=== PATIENT | female | born 1970 | race Caucasian/White ===

== ENCOUNTER → 2017-07-15 11:28 | Day surgery (SDC) | payer BC ==
[~2017-07-15 11:28] MED LIST: Buffered Lidocaine 0.9% SYRIN* 5 ML/SYR SYRINGE INTRADERM ONE; Clindamycin 900 MG IVPREMIX(* 900 MG/50 ML SDV IV ONE; Lidocaine 2% PF* 10 ML AMP ONE; Midazolam* 1 MG/ML 5 ML VIAL (5 MG) ONE; Propofol* 10 MG/ML 20 ML BTL IV PUSH ONE; Sodium Citrate/Citric Acid* 15 ML UDC ONE; Sodium Citrate/Citric Acid* 15 ML UDC PO ONE; fentaNYL* 50 MCG/ML 2 ML VIAL (100 MCG VIAL) ONE
[2017-07-15 15:05] VITALS: BP 128/93
--- NOTE | 2017-07-16 12:17 | OP ---
OPERATIVE REPORT: DATE OF OPERATION: 07/15/17 - SDS DATE OF : 74 SURGEON: Brent Khoury MD SIZING SPONGER: Susie Hinkle PA-C ANESTHESIOLOGIST: Shane Meza DO ANESTHESIA: MAC. PRE-OP DIAGNOSIS: Large ganglion cyst between the first and second metatarsals , right foot. POST-OP DIAGNOSIS: Large ganglion cyst between the first and second metatarsals , right foot. OPERATIVE PROCEDURE: Excision of cyst, right forefoot. DESCRIPTION OF PROCEDURE: The patient was taken to the operating room where a serpentine incision was made over the dorsum of the first webspace. Immediately , through the skin, we encountered the large subcutaneous ganglion cyst, probably 2 cm or so wide, but 4 to 5 cm long. The cyst cavity extended all the way into the plantar aspect of the foot way down between the first and second metatarsal base area. This was removed with a 15 blade and a rongeur. We did encounter some bleeding in the deep penetrating branch of the dorsalis pedis. This was controlled with electrocautery. The cyst lining was sent to Pathology. We used some electrocautery along the lateral border of the first metatarsal, medial border of the second metatarsal. We then irrigated thoroughly closing with 2-0 Vicryl sutures, subcu 2-0 Vicryl, and nylon for the skin and a compression dressing applied. [id number]/[facility] #: [id number] MTDD
== END | disposition home or self-care (01) ==
LOC: OR 11:28
PROVIDERS: ATTEND Orthopaedic Surgery
DX: M67.471 Ganglion, right ankle and foot (principal); Z88.1 Allergy status to other antibiotic agents; Z85.820 Personal history of malignant melanoma of skin
CPT/HCPCS: 81025; 88304; A9270-GY; J2001; J2250; J2704; J3010

== ENCOUNTER → 2018-12-12 08:21 | Day surgery (SDC) | payer OTHER ==
[~2018-12-12 08:21] MED LIST changes: -Buffered Lidocaine 0.9% SYRIN* 5 ML/SYR SYRINGE INTRADERM ONE; -Clindamycin 900 MG IVPREMIX(* 900 MG/50 ML SDV IV ONE; +Heparin 2 UNITS/ML IVPREMIX* 2,000 UNIT/1,000 ML BAG IV ONE; +Iodixanol 320 (CONTRAST) 100 ML SDV ONE; +Iohexol 350 (CONTRAST) 200 ML MDV IV ONE; +LORazepam TAB(*) 1 MG ONE; +Lidocaine 1% INJ* 10 MG/ML 30 ML SDV ONE; -Lidocaine 2% PF* 10 ML AMP ONE; -Propofol* 10 MG/ML 20 ML BTL IV PUSH ONE; -Sodium Citrate/Citric Acid* 15 ML UDC ONE; -Sodium Citrate/Citric Acid* 15 ML UDC PO ONE
--- NOTE | 2018-12-12 15:23 | PN ---
Progress Note - Progress Note Date of Service: 12/12/18 SOAP: Subjective: Patient without pain. No pain at right CF arteriotomy. 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 Plan: 1. D/C to home. 2. Imaging findings and treatment options for Raynaud's Phenomenon discussed with patient and her .
[2018-12-12 15:56] VITALS: BP 139/96
== END | disposition home or self-care (01) ==
LOC: CHICATH 08:21
PROVIDERS: ATTEND Radiology Diagnostic Radiology
DX: I73.00 Raynaud's syndrome without gangrene (principal); S90.31XA Contusion of right foot, initial encounter; I10 Essential (primary) hypertension; Z85.820 Personal history of malignant melanoma of skin; E78.00 Pure hypercholesterolemia, unspecified; X58.XXXA Exposure to other specified factors, initial encounter; Y92.9 Unspecified place or not applicable
CPT/HCPCS: 76937; 99156; 99157; A9270-GY; C1769; C1887; C1894; J1644; J2250; J3010